=== PATIENT | female | born 1965 | race Caucasian/White ===

== ENCOUNTER 2016-12-12 12:11 | Inpatient (IN) | payer BC, OTHER ==
--- NOTE | ~2016-12-12 | DS ---
Discharge Summary [facility] [address] [place]. [address] NAME: PASHA LOZA : 61 STATUS : DIS IN PAT#: [id number] AGE: 51 ADM/REG DATE : 12/12/16 MR#: [id number] REPORT SERV DATE: 12/27/16 DICTATED BY: KACIE STONER DATE: 12/26/16 REPORT STATUS : Draft TRANSCRIBED BY: SANIA DATE: 12/26/16 ADMISSION DATE: 12/12/2016 DISCHARGE DATE: 12/26/2016 ADDENDUM: This dictation is an addition to interim discharge summary dictated by Dr. Henry Gomez on 12/19/2016. I assumed care of the patient on 12/25/2016. At the time of my assumption of care, the patient was relatively stable with resolution of her acute on chronic respiratory failure. Her urine culture came back positive for Pseudomonas aeruginosa. The patient was started on fosfomycin for therapy. The patient is status post first dose. Her vitals remained hemodynamically stable. Given resolution of her presenting symptoms, the patient will be discharged home with Home Health. Plan has been discussed with the patient and her , and they voiced understanding and are agreeable with this plan. DISCHARGE DIAGNOSES: 1. Acute on chronic respiratory failure. 2. Urinary tract infection, secondary to Pseudomonas aeruginosa. 3. Anemia, normocytic. DISCHARGE MEDICATIONS: Baclofen 20 mg p.o. t.i.d., BuSpar 10 mg p.o. twice a day, Citracal one tab p.o. daily, Fluticasone nasal spray one spray at bedtime, gabapentin 300 mg p.o. twice a day, Keppra 500 mg p.o. twice a day, Myrbetriq 50 mg p.o. at bedtime, Enablex 15 mg p.o. at bedtime, sucralfate 1 g p.o. twice a day, Topamax 100 mg p.o. twice a day, trazodone 25 mg p.o. at bedtime. Her other p.r.n. medic medications were continued. DISPOSITION: The patient will be discharged to home with her . ACTIVITY: As tolerated. DIET: Diabetic diet. Greater than 30 minutes was spent on chart review, counseling, medication reconciliation, dictation note. SIMRAN Kacie Stoner MD / [id number] CC: Kacie Stoner MD Discharge Summary [address] [address] NAME: DAGOPASHA BRODERICK : 61 STATUS : DIS IN PAT#: [id number] AGE: 51 ADM/REG DATE : 12/12/16 MR#: [id number] REPORT SERV DATE: 12/27/16 DICTATED BY: KACIE STONER DATE: 12/26/16 REPORT STATUS : Draft TRANSCRIBED BY: SANIA DATE: 12/26/16 Yonatan Davenport DO
--- NOTE | ~2016-12-12 | HP ---
History And Physical [facility] [id number] [place]. [address] NAME: PASHA KWAN : 61 STATUS : REG ER PAT#: [id number] AGE: 51 ADM/REG DATE : 12/12/16 MR#: [id number] REPORT SERV DATE: 12/12/16 DICTATED BY: MAINOR FOSS DATE: 12/12/16 REPORT STATUS : Draft TRANSCRIBED BY: MODKristin DATE: 12/12/16 DATE OF ADMISSION: 12/12/2016 REASON FOR ADMISSION: Altered mental status. HISTORY OF PRESENT ILLNESS: Ms. Kwan is a 51-year-old lady who is familiar to me from her admission to the hospital in August. 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 coli. Her is her primary caregiver. She lives at home. She presented to the emergency room this afternoon with similar complaints of altered mental status and urinary infection as with prior admission. Of note, she does get lethargic with previous urinary tract infection and the believes this is the same situation as previously. She does have significant chronic CO2 retention with a baseline bicarb around upper 30s. We were contacted by the nurse practitioner in the emergency department for consideration of hospitalization due to hypercapnic respiratory failure, altered mental status, and urinary infection. PAST MEDICAL HISTORY: 1. Quadriplegia secondary to C5-C6 spinal injury with spastic quadriparesis. 2. Chronic pain syndrome. 3. GERD. 4. Frequent urinary tract infections with multiple resistant organisms including ESBL E. coli most recently with prior suprapubic catheter placement. PAST SURGICAL HISTORY: Spinal surgery for the above, appendectomy, and bilateral tubal ligation. SOCIAL HISTORY: No tobacco, alcohol, or illicit drug use. Recently she was injured during a fall in [place] in [place] several years ago according to her . FAMILY HISTORY: Her mother had lung cancer and father had hypertension. REVIEW OF SYSTEMS: A comprehensive 13-point review of systems was completed with the patient and her in the emergency department and review of systems was completed in the emergency department and was negative except for those points described above in the history of present illness section of the dictation. MEDICATION LIST: Amitiza 8 mcg up to twice daily as needed. Baclofen 20 mg 4 times daily. BuSpar 30 mg twice a day. Cipro 500 mg daily. Citrucel 2 times a day. Enablex fiber supplement as needed. Gabapentin 3 to 4 times a day. Hydrocodone 5/325 up to three times a day as needed. Keppra 500 mg twice daily. Reglan 10 mg 4 times daily. Myrbetriq 50 mg once a day. Nitrofurantoin 100 mg a day. MiraLAX powder as needed. Phenergan 25 mg as needed. Ranitidine 300 mg twice daily as needed. Topamax 100 mg 2 times a day. Carafate 1 g 2 times a day. Trazodone 150 mg once a day. History And Physical [address] [address] NAME: PASHA KWAN : 61 STATUS : REG ER PAT#: [id number] AGE: 51 ADM/REG DATE : 12/12/16 MR#: [id number] REPORT SERV DATE: 12/12/16 DICTATED BY: MAINOR FOSS DATE: 12/12/16 REPORT STATUS : Draft TRANSCRIBED BY: SANIA DATE: 12/12/16 ALLERGIES: CODEINE, PENICILLIN, AND ADHESIVE TAPE. ADVANCED DIRECTIVES AND LIVING LAZAR: None. Her is her medical decision maker. PHYSICAL EXAMINATION: GENERAL: The patient is a female, who is chronically ill-appearing and seen in the emergency department, on a BiPAP. HEENT: She is sluggishly responsive but does follow commands. Pupils are equal, round, and reactive to light. Extraocular movements are intact although sluggishly reactive on my exam. HEENT: Head is atraumatic and normocephalic. Ears, nose, and mouth are otherwise unremarkable with moist oral mucosa and fair oral dentition. NECK: Supple without JVD. CHEST: Clear S1, S2 with heart rate in the 80s. ABDOMEN: Soft, nontender, nondistended with a suprapubic catheter which is chronically indwelling. Legs with 1+ pitting edema bilaterally. NEUROLOGIC: Exam is at her baseline. Chronic quadriplegia secondary to C5-6 fracture in the past. PSYCHIATRIC: Exam is limited secondary to mental status. LABORATORY DATA: Personal review of diagnostic workup completed in the emergency department today includes urinalysis which is significant for specific gravity of 1.004, large leukocyte esterase, positive nitrite, and 13 white blood cells and some budding yeast. A CBC has a normal white blood cell count with hemoglobin 12.1, hematocrit of 38.7, and platelet count of 186. A lactate level is 1.1. A urine drug screen is negative. Metabolic profile is significant for chronic CO2 retention with a CO2 of 37, potassium is 3.5, and liver function tests are unremarkable. Troponin level is negative. A chest x-ray shows some hazy bilateral opacities on both sides of the chest without focal consolidation. An EKG shows normal sinus rhythm without ST elevation, depression, with a rate of 83. An ABG shows a pH of 7.226, pCO2 of 93.6, PO2 of 78.2, bicarb of 38, and base excess of 7.5. Oxygen saturation is 98.6%. A followup ABG actually shows deterioration of her respiratory acidosis with a rising paCO2 level despite BiPAP therapy. IMPRESSION: 1. Acute hypercapnic respiratory failure superimposed on to chronic respiratory failure. 2. Dehydration. 3. 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 4. Chronic C5-6 injury with spastic paraparesis. 5. Chronic pain syndrome. 6. Altered mental status likely secondary to acute hypercapnic respiratory failure superimposed on to chronic respiratory failure and some component of toxic metabolic encephalopathy as well. Drug screen is negative. 7. Mild hypokalemia. 8. Chronic indwelling suprapubic catheter. 9. Gastroesophageal reflux disease. 10.Obstructive sleep apnea, on nocturnal oxygen and noncompliant with home CPAP therapy. 11.History of seizure disorder on Keppra. History And Physical [address] [address] NAME: PASHA KWAN : 61 STATUS : REG ER PAT#: [id number] AGE: 51 ADM/REG DATE : 12/12/16 MR#: [id number] REPORT SERV DATE: 12/12/16 DICTATED BY: MAINOR FOSS DATE: 12/12/16 REPORT STATUS : Draft TRANSCRIBED BY: MODL DATE: 12/12/16 12.General debility. PLAN: At this point, we are trying to clarify whether or not the patient is to be intubated or not. She has worsening respiratory acidosis despite aggressive BiPAP settings and her is not available in the emergency department and we are trying to contact him by telephone. She has been intubated in the past for the same, most recently in August at which point, I saw her in the CCU. We will cover her with broad-spectrum antibiotics including meropenem in light of her history of VRE and ESBL E. coli and positive leukocytes or nitrite with white blood cells on urinalysis today and send her urine for culture. We will follow up another ABG after further evaluation. We will continue her home Keppra and review remainder of home medication list for appropriateness of resumption while in the hospital. We will cover with a proton pump inhibitor for stress ulcer prophylaxis in light of her history of GERD and with Lovenox for DVT prophylaxis. We are continuing to attempt to clarify code status and she will have a PICC line placed for better central venous access during her critical illness. We will keep her updated by telephone once he is available. At this point, she is a full code. We will make further adjustments to her regimen as clinically warranted. Approximately 47 minutes of critical care time was spent at the bedside excluding procedures, assessing and stabilizing Ms. Kwan in the emergency department. LAKESHIA/SANIA Mainor Foss MD / [id number] CC: Yonatan Davenport DO
--- NOTE | ~2016-12-12 | IDS ---
Interim Discharge Summary [facility] [address] [place]. [address] NAME: PASHA LOZA : 61 STATUS : ADM IN PAT#: [id number] AGE: 51 ADM/REG DATE : 12/12/16 MR#: [id number] REPORT SERV DATE: 12/19/16 DICTATED BY: Ezequiel DILLON DATE: 12/19/16 REPORT STATUS : Draft TRANSCRIBED BY: MODL DATE: 12/19/16 ADMISSION DATE: 12/12/2016 DISCHARGE DATE: INTERIM SUMMARY DATE: 12/19/2016. For details of earlier hospital stay, please see Critical Care interim summary dated 12/14/2016. DIAGNOSES AT THE TIME OF THIS INTERIM SUMMARY: Respiratory failure with hypoxia and hypercapnia that is acute on chronic in nature, now at baseline, encephalopathy, resolved; C5 spinal injury with spastic quadriplegia; intrathecal baclofen pump; sepsis, resolved; urinary tract infection, resolved; hypokalemia, resolved. ACTIVE CONSULTATIONS: None. PROCEDURES: None. BRIEF SUMMARY: The patient has made marked improvement in her overall clinical picture after her underlying UTI was treated, and significant adjustments have been made in her medications, including discontinuation of multiple therapies, including oral baclofen which she should not need given that she has an intrathecal baclofen pump. At the time of this dictation, she has a negative CT scan of the brain, normalizing lab work, and negative swab for flu A and B. she is waiting to be transitioned to a telemetry bed for ongoing medical management. Dr. Wallis her physiatrists has we filled her baclofen pump and this will not need to be changed again and full late February. There is some consideration for adding additional therapy for underlying narcolepsy which may help with her chronic respiratory failure and recurrent hyper-sedation, and avoid potential repeat episodes that led to her admission this time with over-sedation and hypercapnic respiratory failure. Significant labs at the time of this interim summary, showed a sodium of 138, potassium of 3.8, BUN of 5, creatinine of 0.21, white count is 6.9, hemoglobin 9.4, platelets a 137. The goal will be for her to return home with her family that has handicap-adjusted apartment to allow for them to provide care for her in that setting. Hopefully, she will be medically stable to make this transition within the next few days. Followup laboratory has been ordered for 12/20/2016, and the patient's care will be provided by another member of the hospitalist team starting 12/20/2016. RUBIN/SANIA Ezequiel Dillon M.D. / [id number] Interim Discharge Summary [address] [address] NAME: PASHA LOZA : 61 STATUS : ADM IN PAT#: [id number] AGE: 51 ADM/REG DATE : 12/12/16 MR#: [id number] REPORT SERV DATE: 12/19/16 DICTATED BY: Ezequiel DILLON DATE: 12/19/16 REPORT STATUS : Draft TRANSCRIBED BY: MODKristin DATE: 12/19/16 CC: Antonieta Bedoya DO
--- NOTE | ~2016-12-12 | IDS ---
Interim Discharge Summary [facility] [address] [place]. [address] NAME: PASHA KWAN : 61 STATUS : ADM IN [facility]#: [id number] AGE: 51 ADM/REG DATE : 12/12/16 MR#: [id number] REPORT SERV DATE: 12/14/16 DICTATED BY: MEGHAN NICOLAS DATE: 12/14/16 REPORT STATUS : Draft TRANSCRIBED BY: MODKristin DATE: 12/14/16 ADMISSION DATE: 12/12/2016 DISCHARGE DATE: Interim Discharge Summary And Progress Note The patient is being transferred from the Critical Care Service to the Hospitalist Service. HISTORY OF PRESENT ILLNESS: Ms. wKan is an unfortunate 51-year-old woman with multiple medical problems, most of which now stem from prior C5-C6 spinal injury with chronic spastic paresis with an indwelling suprapubic catheter and recurrent urinary tract infections. She came in to the emergency department because of change in mental status and evidence of a new UTI. She had significant CO2 retention, which was acute on chronic. Was placed on BiPAP and transferred to the ICU. She stated in the emergency department and then reiterated in the ICU very clearly that she did not want to be intubated, wanted to be a limited code which was documented on the chart and was awake throughout the entire process even with her elevated pCO2. SUMMARY OF CLINICAL COURSE THUS FAR: The patient did very well with BiPAP, with significant improvement in mental status, significant improvement in oxygenation, and CO2 retention. She has not required any pressors and has been hemodynamically stable for most of her stay in the ICU. PAST MEDICAL HISTORY: Significant for quadriparesis because of C5-C6 spinal injury, chronic pain syndrome, acid reflux, indwelling Soares catheter with recurrent urinary tract infections. SOCIAL HISTORY: Negative for tobacco abuse, alcohol abuse, or illicit drug use. Her cervical injury apparently was due to a fall in [place] several years ago. REVIEW OF SYSTEMS: Review of 10 systems this morning was performed and is positive for what was noted above. PHYSICAL EXAMINATION: GENERAL: On exam, this morning, she is chronically ill-appearing, but in no acute distress. VITAL SIGNS: Her heart rate is 86, blood pressure 130/66 with an oximetry of 98% and normal respiratory rate. On no pressors. No sedation. HEENT: Normocephalic and atraumatic. NECK: Supple. No lymphadenopathy. No JVD. CHEST: Symmetric with good expansion bilaterally. She has coarse breath sounds. CARDIOVASCULAR: She has S1 and S2, which are regular in rate and rhythm. ABDOMEN: Benign. She has no edema. No clubbing. No cyanosis. ASSESSMENT/PLAN: 1. Respiratory failure. She has acute on chronic hypercapnic respiratory failure, though Interim Discharge Summary [address] [place]. [address] NAME: PASHA KWAN : 61 STATUS : ADM IN PAT#: [id number] AGE: 51 ADM/REG DATE : 12/12/16 MR#: [id number] REPORT SERV DATE: 12/14/16 DICTATED BY: MEGHAN NICOLAS DATE: 12/14/16 REPORT STATUS : Draft TRANSCRIBED BY: SANIA DATE: 12/14/16 the acute component is much improved. 2. We will switch our BiPAP to one at night and p.r.n. during the day. 3. She had sepsis syndrome associated with urinary tract infection. Her procalcitonin this morning is not elevated, though she has a history of multidrug resistant gram- negative urinary tract infections, so we will continue the broad-spectrum antibiotics until the organisms are identified. She has a culture in progress, which is already growing some gram-negative rods. That should be followed up by the team on the floor. 4. She is a do not intubate, limited code by her wishes and that is addressed on the chart. CHADWICK/SANIA Meghan Nicolas M.D. / [id number] CC: MD Yonatan Cortes DO
[~2016-12-12 12:11] MED LIST: *HOMEMEDS; ACET500CAP PO; ADOXA100 MG PO; ALAVERT10 MG PO; AMBIEN CR12.5 MG PO; AMITIZA8 MCG PO; ASABAYER PO; ATV1 PO; BACLOFEN; BACLOFEN PUMP; BACLOFEN20 MG PO; BEN25 PO; BENADRYL 50 MG50 MG PO; BISR PR; BUSPAR15 M1 PO; BUSPAR30 MG PO; CELEXA40 MG PO; CIP5 PO; CITRACAL PO; CITRUCEL500 MG PO; CLOTRIM/BETA EX; COLACEUDL PO; CYMBALTA30 PO; CYMBALTA60 PO; D.O.S.100 MG PO; DEXLANT PO; DIL2TAB PO; DOK100 MG PO; DSS PO; ENABLEX15 PO; ENDOCET1 TA3 PO; FIBERCON PO; FIORICET PO; FLEX PO; FLONASE NAS; FORTEO SC; HYDROCORT0.5 % EX; IMITREX50 PO; IMOD PO; KAPIDEX60 MG PO; KEPPRA500 PO; KLONO2 PO; LIDODERM PATCH TD; LIDODERM TOP; LIOR10 PO; MACROBID PO; MACRODANTIN 10100 MG PO; MELA3 PO; MEPERITAB50 MG PO; MIRALAXPKT PO; MONUROL PO; MULTIVIT/MIN PO; MULTIVITAMI1 PO; MYRBETRIQ50 MG PO; NEUR100 PO; NEUR300 PO; NEUR600 PO; NEUR800 PO; NEXIUM40 PO; NOR10 PO; NORCO1 TA1 PO; OXYCON20 PO; OXYCONTIN15 MG PO; PR25 PO; PROAIR HFA INH; PROAIR HFA PO; PROTONIX PO; PROTONIX20 MG PO; PROVIGIL2 PO; RANITIDINE300 MG PO; REG PO; REST15 PO; ROXICODONE15 MG PO; SEROQUEL25 PO; SLO-FE PO; SUBUTEX8 MG PO; SUBUTEX8 MG SL; SUCR PO; TOPAMAX100 PO; TOPAMAX200 MG PO; TRAZ50 PO; TRAZODONE150 MG PO; TRAZODONE300 MG PO; ULTRAM50 PO; V2 PO; ZANAFLEX 4 MG TA4 MG PO; ZANAFLEX2 MG PO; ZANTAC 150 PO; ZANTAC150 MG PO; ZANTAC300 MG PO; ZOFRAN4 PO; [UNRECOGNIZED DRUG - OTHER] PO
[2016-12-12 13:21] LABS: BASOPHILS 0.4 %; BASOPHILS ABSOLUTE 0.02 10/3/uL (0.0-0.16); EOSINOPHILS 1.9 %; EOSINOPHILS ABSOLUTE 0.09 10/3/uL (0.0-0.53); ER CBC TAT 0 Hrs 05 MinsNP; HEMATOCRIT 38.7 % (36.0-48.0); HEMOGLOBIN 12.1 g/dL (12.0-16.0); IMMATURE GRANULOCYTES 0.4 %; IMMATURE GRANULOCYTES ABSOLUTE 0.02 10/3/uL (0.0-0.11); LYMPHOCYTES 27.3 %; LYMPHOCYTES ABSOLUTE 1.32 10/3/uL (0.67-4.30); MANUAL DIFF NO %; MEAN CORPUS HGB CONC 31.3 g/dL (32.0-36.0); MEAN CORPUSCULAR HEMOGLOB 30.4 pg (26.0-34.0); MEAN CORPUSCULAR VOLUME 97.2 fL (80-100); MEAN PLATELET VOLUME 9.8 fL (9.2-13.0); MONOCYTES 6.6 %; MONOCYTES ABSOLUTE 0.32 10/3/uL (0.21-1.20); NEUTROPHILS 63.4 %; NEUTROPHILS ABSOLUTE 3.06 10/3/uL (2.02-8.40); PLATELET COUNT 186 10/3/uL (150-400); RBC DISTRIBUTION WIDTH 14.4 % (12.0-16.0); RED CELL COUNT 3.98 10/6/uL (4.0-5.6); WHITE BLOOD CELLS 4.8 10/3/uL (4.5-10.5)
[2016-12-12 13:39] LABS: A/G RATIO 1.1 (0.7-1.9); ALBUMIN 3.9 G/DL (3.5-5.0); ALKALINE PHOSPHATASE 100 U/L (45-117); BUN (BLOOD UREA NITROGEN) 15 MG/DL (6-23); CALCIUM, SERUM 11.1 MG/DL (8.5-10.4); CHLORIDE, SERUM 99 MMOL/L (96-112); CO2 (CARBON DIOXIDE) 37 MMOL/L (24-34); CREATININE 0.82 MG/DL (0.55-1.02); GFR AFRICAN AMERICAN 95 ML/MIN (>=60); GFR NON AFRICAN AMERICAN 82 ML/MIN (>=60); GLOBULIN 3.6 G/DL (2.5-4.1); GLUCOSE, SERUM 88 MG/DL (60-99); POTASSIUM, SERUM 3.5 MMOL/L (3.5-5.3); SGOT(AST) 25 U/L (5-40); SGPT(ALT) 31 U/L (5-65); SODIUM, SERUM 144 MMOL/L (135-148); TOTAL BILIRUBIN 0.2 MG/DL (0-1.2); TOTAL PROTEIN 7.5 G/DL (6.0-8.5)
[2016-12-12 13:58] LABS: AMPHETAMINES (NOT ORD) NEG (NEG); BARBITURATES (NOT ORDERED NEG (NEG); BENZODIAZEPINES (NOT ORD) NEG (NEG); CANNABINOIDS (THC) NEG (NEG); COCAINE (NOT ORDERED) NEG (NEG); OPIATES NEG (NEG); PHENCYCLIDINE(PCP) NEG (NEG); TRICYCLICS NEG (NEG)
[2016-12-12 14:11] LABS: ASCORBIC ACID (UR NOT ORDER) NEG (NEG); BILIRUBIN, URINE NEGATIVE (NEG); KETONE, URINE NEGATIVE (NEG); LEUKOCYTE ESTERASE(NOT OR SMALL (NEG); NITRITE (URINE) POS (NEG); WBC (NOT ORDERED) (RFLEX) 20 (0-5)
[2016-12-12 14:13] LABS: ER URINALYSIS TAT 0 Hrs 43 Mins
[2016-12-12 15:32] LABS: TROPONIN I <0.02 NG/ML (<0.05)
[2016-12-12] MEDS ORDERED: *UNABLE2 (16:05)
[2016-12-12] MEDS ORDERED: AMITIZA (16:06)
[2016-12-12] MEDS ORDERED: BACLOFEN (16:07)
[2016-12-12] MEDS ORDERED: BUSPIRONE (16:07)
[2016-12-12] MEDS ORDERED: CITRACAL (16:08)
[2016-12-12] MEDS ORDERED: CIPRO (16:08)
[2016-12-12] MEDS ORDERED: FIBER SUPPLEMENT (16:09)
[2016-12-12] MEDS ORDERED: ENABLEX (16:09)
[2016-12-12] MEDS ORDERED: NORCO (16:10)
[2016-12-12] MEDS ORDERED: GABAPENTIN (16:10)
[2016-12-12] MEDS ORDERED: KEPPRA (16:12)
[2016-12-12] MEDS ORDERED: MACROBID (16:13)
[2016-12-12] MEDS ORDERED: REGLAN (16:13)
[2016-12-12] MEDS ORDERED: PROMETHAZINE (16:16)
[2016-12-12] MEDS ORDERED: MIRALAX (16:16)
[2016-12-12] MEDS ORDERED: CARAFATE (16:17)
[2016-12-12] MEDS ORDERED: TOPAMAX (16:17)
[2016-12-12] MEDS ORDERED: TRAZODONE (16:17)
[2016-12-12] MEDS ORDERED: ZANTAC (16:19)
[2016-12-12] MEDS ORDERED: MYRBETRIQ (16:19)
[2016-12-12 16:23] LABS: ALLENS TEST Pos; BE (BASE EXCESS) 4.5 MEQ/L (0 +/- 2.5); CARBOXYHEMOGLOBIN 2.5 % (0-3); HCO3 (ACTUAL BICARBONATE) 35.3 MEQ/L (23-27); HEMOBLOGIN CONTENT 10.4 G/DL (12-16); INSTRUMENT SERIAL # 8087; METHEMOGLOBIN 0.2 % (0-3); O2 CONTENT 14.4 VOL% (18-24); OPERATOR ID 14335; PCO2 (CO2 TENSION) 99 MMHG (35-45); PO2 (O2 TENSION) 180 MMHG (79-93); SAMPLE Arterial; pH 7.17 (7.37-7.43)
[2016-12-12 17:28] LABS: PROCALCITONIN 0.05 ng/mL (<0.5)
[2016-12-12 17:30] LABS: ALLENS TEST Pos; BE (BASE EXCESS) 4.7 MEQ/L (0 +/- 2.5); BIPAP 20/6 cm.H2O; CARBOXYHEMOGLOBIN 3.1 % (0-3); HCO3 (ACTUAL BICARBONATE) 33.2 MEQ/L (23-27); HEMOBLOGIN CONTENT 11.1 G/DL (12-16); INSTRUMENT SERIAL # 8087; METHEMOGLOBIN 0.1 % (0-3); O2 CONTENT 14.9 VOL% (18-24); OPERATOR ID 14335; PCO2 (CO2 TENSION) 73 MMHG (35-45); PO2 (O2 TENSION) 105 MMHG (79-93); SAMPLE Arterial; pH 7.28 (7.37-7.43)
[2016-12-12] MEDS ORDERED: CITRACAL PO (17:46)
[2016-12-12] MEDS ORDERED: BACLOFEN20 MG PO (17:46)
[2016-12-12] MEDS ORDERED: AMITIZA8 MCG PO (17:46)
[2016-12-12] MEDS ORDERED: BUSPAR30 MG PO (17:46)
[2016-12-12] MEDS ORDERED: REG PO (17:47)
[2016-12-12] MEDS ORDERED: KEPPRA500 PO (17:47)
[2016-12-12] MEDS ORDERED: ENABLEX15 PO (17:47)
[2016-12-12] MEDS ORDERED: NEUR300 PO (17:47)
[2016-12-12] MEDS ORDERED: NORCO1 TA1 PO (17:47)
[2016-12-12] MEDS ORDERED: ZANTAC300 MG PO (17:48)
[2016-12-12] MEDS ORDERED: TOPAMAX100 PO (17:48)
[2016-12-12] MEDS ORDERED: SUCR PO (17:48)
[2016-12-12] MEDS ORDERED: TRAZ50 PO (17:48)
[2016-12-12] MEDS ORDERED: BACDS PO (17:49)
[2016-12-12] MEDS ORDERED: MACROBID PO (17:50)
[2016-12-12] MEDS ORDERED: PROAIR HFA INH (17:50)
[2016-12-12] MEDS ORDERED: PR25 PO (17:50)
[2016-12-12] MEDS ORDERED: ASABAYER PO (17:51)
[2016-12-12] MEDS ORDERED: ACET500CAP PO (17:51)
[2016-12-12] MEDS ORDERED: FLONASE NAS (17:51)
[2016-12-12] MEDS ORDERED: MYRBETRIQ50 MG PO (17:54)
[2016-12-12 20:05] LABS: BE (BASE EXCESS) 7.5 MEQ/L (0 +/- 2.5); INSTRUMENT SERIAL # 8087; PCO2 (CO2 TENSION) 94 MMHG (35-45); PO2 (O2 TENSION) 78 MMHG (79-93); pH 7.23 (7.37-7.43)
[2016-12-12 20:06] LABS: ALLENS TEST Pos; CARBOXYHEMOGLOBIN 3.1 % (0-3); HEMOBLOGIN CONTENT 11.6 G/DL (12-16); METHEMOGLOBIN 0.2 % (0-3); O2 CONTENT 14.6 VOL% (18-24); OPERATOR ID 14335; SAMPLE Arterial
[2016-12-13 03:59] LABS: ALLENS TEST Pos; BE (BASE EXCESS) 4.7 MEQ/L (0 +/- 2.5); BIPAP 20/6 cm.H2O; CARBOXYHEMOGLOBIN 2.5 % (0-3); HCO3 (ACTUAL BICARBONATE) 31.4 MEQ/L (23-27); HEMOBLOGIN CONTENT 10.4 G/DL (12-16); INSTRUMENT SERIAL # 35151; METHEMOGLOBIN 0.2 % (0-3); O2 CONTENT 14.6 VOL% (18-24); PCO2 (CO2 TENSION) 59 MMHG (35-45); PO2 (O2 TENSION) 185 MMHG (79-93); SAMPLE Arterial; pH 7.35 (7.37-7.43)
[2016-12-13 04:02] LABS: BASOPHILS 0.3 %; BASOPHILS ABSOLUTE 0.02 10/3/uL (0.0-0.16); EOSINOPHILS 1.2 %; EOSINOPHILS ABSOLUTE 0.07 10/3/uL (0.0-0.53); HEMOGLOBIN 10.8 g/dL (12.0-16.0); IMMATURE GRANULOCYTES 0.3 %; IMMATURE GRANULOCYTES ABSOLUTE 0.02 10/3/uL (0.0-0.11); LYMPHOCYTES 20.8 %; LYMPHOCYTES ABSOLUTE 1.21 10/3/uL (0.67-4.30); MEAN CORPUS HGB CONC 31.1 g/dL (32.0-36.0); MEAN CORPUSCULAR HEMOGLOB 30.3 pg (26.0-34.0); MEAN CORPUSCULAR VOLUME 97.5 fL (80-100); MEAN PLATELET VOLUME 9.8 fL (9.2-13.0); MONOCYTES 6.7 %; MONOCYTES ABSOLUTE 0.39 10/3/uL (0.21-1.20); NEUTROPHILS 70.7 %; NEUTROPHILS ABSOLUTE 4.12 10/3/uL (2.02-8.40); PLATELET COUNT 147 10/3/uL (150-400); RBC DISTRIBUTION WIDTH 14.4 % (12.0-16.0); RED CELL COUNT 3.56 10/6/uL (4.0-5.6); WHITE BLOOD CELLS 5.8 10/3/uL (4.5-10.5)
[2016-12-13 04:03] LABS: HEMATOCRIT 34.7 % (36.0-48.0); MANUAL DIFF NO %
[2016-12-13 04:06] LABS: INTERNATIONAL NORMAL RATI 0.9 UNITS (-); PARTIAL THROMBO TIME 42.7 SEC (22.5-37.2); PROTIME (NOT ORD) 12.3 SEC (12.0-14.5)
[2016-12-13 04:43] LABS: A/G RATIO 1.1 (0.7-1.9); ALBUMIN 3.5 G/DL (3.5-5.0); ALKALINE PHOSPHATASE 97 U/L (45-117); BUN (BLOOD UREA NITROGEN) 14 MG/DL (6-23); CALCIUM, SERUM 10.3 MG/DL (8.5-10.4); CHLORIDE, SERUM 106 MMOL/L (96-112); CK-MB 8.4 NG/ML; CREATININE 0.72 MG/DL (0.55-1.02); FREE T4 0.96 NG/DL (0.76-1.46); GFR AFRICAN AMERICAN 111 ML/MIN (>=60); GFR NON AFRICAN AMERICAN 96 ML/MIN (>=60); GLOBULIN 3.1 G/DL (2.5-4.1); GLUCOSE, SERUM 79 MG/DL (60-99); PHOSPHORUS, SERUM 4.5 MG/DL (2.5-4.5); POTASSIUM, SERUM 3.9 MMOL/L (3.5-5.3); SGOT(AST) 23 U/L (5-40); SGPT(ALT) 32 U/L (5-65); SODIUM, SERUM 144 MMOL/L (135-148); TOTAL BILIRUBIN 0.1 MG/DL (0-1.2); TOTAL PROTEIN 6.6 G/DL (6.0-8.5); TROPONIN I <0.02 NG/ML (<0.05)
[2016-12-13 04:44] LABS: CKMB INDEX (NOT ORD) 3.5; CO2 (CARBON DIOXIDE) 32 MMOL/L (24-34); CPK 238 U/L (0-200)
[2016-12-13 04:47] LABS: SED RATE 18 MM/HR (0-20)
[2016-12-14 03:42] LABS: BASOPHILS 0.3 %; BASOPHILS ABSOLUTE 0.01 10/3/uL (0.0-0.16); EOSINOPHILS 0.5 %; EOSINOPHILS ABSOLUTE 0.02 10/3/uL (0.0-0.53); HEMATOCRIT 31.6 % (36.0-48.0); HEMOGLOBIN 10.1 g/dL (12.0-16.0); IMMATURE GRANULOCYTES ABSOLUTE 0.04 10/3/uL (0.0-0.11); LYMPHOCYTES 18.2 %; LYMPHOCYTES ABSOLUTE 0.71 10/3/uL (0.67-4.30); MEAN CORPUSCULAR HEMOGLOB 30.6 pg (26.0-34.0); MEAN CORPUSCULAR VOLUME 95.8 fL (80-100); MEAN PLATELET VOLUME 9.9 fL (9.2-13.0); MONOCYTES 6.2 %; MONOCYTES ABSOLUTE 0.24 10/3/uL (0.21-1.20); NEUTROPHILS 73.8 %; NEUTROPHILS ABSOLUTE 2.88 10/3/uL (2.02-8.40); PLATELET COUNT 110 10/3/uL (150-400); RBC DISTRIBUTION WIDTH 13.9 % (12.0-16.0); WHITE BLOOD CELLS 3.9 10/3/uL (4.5-10.5)
[2016-12-14 03:43] LABS: MANUAL DIFF NO %
[2016-12-14 03:54] LABS: CO2 (CARBON DIOXIDE) 28 MMOL/L (24-34); CREATININE 0.36 MG/DL (0.55-1.02); GFR AFRICAN AMERICAN 143 ML/MIN (>=60); GFR NON AFRICAN AMERICAN 123 ML/MIN (>=60); GLUCOSE, SERUM 66 MG/DL (60-99)
[2016-12-14 03:57] LABS: BUN (BLOOD UREA NITROGEN) 9 MG/DL (6-23); CALCIUM, SERUM 8.3 MG/DL (8.5-10.4); CHLORIDE, SERUM 95 MMOL/L (96-112); SODIUM, SERUM 134 MMOL/L (135-148)
[2016-12-14 04:16] LABS: PROCALCITONIN <0.05 ng/mL (<0.5)
[2016-12-15 05:25] LABS: BASOPHILS 0.2 %; BASOPHILS ABSOLUTE 0.01 10/3/uL (0.0-0.16); EOSINOPHILS 0 %; HEMATOCRIT 30.9 % (36.0-48.0); HEMOGLOBIN 10.1 g/dL (12.0-16.0); IMMATURE GRANULOCYTES 1.4 %; IMMATURE GRANULOCYTES ABSOLUTE 0.08 10/3/uL (0.0-0.11); LYMPHOCYTES 9.6 %; LYMPHOCYTES ABSOLUTE 0.56 10/3/uL (0.67-4.30); MEAN CORPUS HGB CONC 32.7 g/dL (32.0-36.0); MEAN CORPUSCULAR HEMOGLOB 30.7 pg (26.0-34.0); MEAN CORPUSCULAR VOLUME 93.9 fL (80-100); MONOCYTES 3.8 %; MONOCYTES ABSOLUTE 0.22 10/3/uL (0.21-1.20); NEUTROPHILS ABSOLUTE 4.97 10/3/uL (2.02-8.40); PLATELET COUNT 128 10/3/uL (150-400); RED CELL COUNT 3.29 10/6/uL (4.0-5.6)
[2016-12-15 05:36] LABS: MANUAL DIFF NO %; WHITE BLOOD CELLS 5.8 10/3/uL (4.5-10.5)
[2016-12-15 05:36] LABS: BUN (BLOOD UREA NITROGEN) 8 MG/DL (6-23); CALCIUM, SERUM 8.3 MG/DL (8.5-10.4); CHLORIDE, SERUM 88 MMOL/L (96-112); GFR AFRICAN AMERICAN 152 ML/MIN (>=60); GFR NON AFRICAN AMERICAN 131 ML/MIN (>=60); GLUCOSE, SERUM 67 MG/DL (60-99); POTASSIUM, SERUM 3.8 MMOL/L (3.5-5.3); SODIUM, SERUM 129 MMOL/L (135-148)
[2016-12-15 05:37] LABS: CO2 (CARBON DIOXIDE) 34 MMOL/L (24-34)
[2016-12-15 11:45] LABS: ALLENS TEST Pos; BE (BASE EXCESS) 3.9 MEQ/L (0 +/- 2.5); CARBOXYHEMOGLOBIN 2.2 % (0-3); DEVICE NC; HCO3 (ACTUAL BICARBONATE) 33.8 MEQ/L (23-27); HEMOBLOGIN CONTENT 10.4 G/DL (12-16); INSTRUMENT SERIAL # 8083; METHEMOGLOBIN 0.2 % (0-3); O2 CONTENT 14.1 VOL% (18-24); PCO2 (CO2 TENSION) 89 MMHG (35-45); PO2 (O2 TENSION) 105 MMHG (79-93); SAMPLE Arterial
[2016-12-15 12:18] LABS: SODIUM, URINE 100 MEQ/L
[2016-12-15 12:22] LABS: OSMOLALITY, URINE 341 MOSM/KG (50-1200)
[2016-12-16 04:02] LABS: ALLENS TEST Pos; BE (BASE EXCESS) 15.6 MEQ/L (0 +/- 2.5); BIPAP 20/6 cm.H2O; CARBOXYHEMOGLOBIN 1.9 % (0-3); HCO3 (ACTUAL BICARBONATE) 41.6 MEQ/L (23-27); HEMOBLOGIN CONTENT 10.4 G/DL (12-16); INSTRUMENT SERIAL # 8083; METHEMOGLOBIN 0.2 % (0-3); O2 CONTENT 14.5 VOL% (18-24); OPERATOR ID 17370; PCO2 (CO2 TENSION) 59 MMHG (35-45); PO2 (O2 TENSION) 164 MMHG (79-93); SAMPLE Arterial; pH 7.47 (7.37-7.43)
[2016-12-16 05:09] LABS: BASOPHILS 0.1 %; BASOPHILS ABSOLUTE 0.01 10/3/uL (0.0-0.16); EOSINOPHILS 0 %; HEMATOCRIT 30.8 % (36.0-48.0); HEMOGLOBIN 10.3 g/dL (12.0-16.0); IMMATURE GRANULOCYTES 0.9 %; IMMATURE GRANULOCYTES ABSOLUTE 0.07 10/3/uL (0.0-0.11); LYMPHOCYTES 12.4 %; LYMPHOCYTES ABSOLUTE 0.96 10/3/uL (0.67-4.30); MEAN CORPUS HGB CONC 33.4 g/dL (32.0-36.0); MEAN CORPUSCULAR HEMOGLOB 30.6 pg (26.0-34.0); MEAN CORPUSCULAR VOLUME 91.4 fL (80-100); MEAN PLATELET VOLUME 9.8 fL (9.2-13.0); MONOCYTES 4.8 %; MONOCYTES ABSOLUTE 0.37 10/3/uL (0.21-1.20); NEUTROPHILS 81.8 %; NEUTROPHILS ABSOLUTE 6.35 10/3/uL (2.02-8.40); PLATELET COUNT 158 10/3/uL (150-400); RBC DISTRIBUTION WIDTH 13.8 % (12.0-16.0); RED CELL COUNT 3.37 10/6/uL (4.0-5.6); WHITE BLOOD CELLS 7.8 10/3/uL (4.5-10.5)
[2016-12-16 05:12] LABS: MANUAL DIFF NO %
[2016-12-16 05:37] LABS: % IRON SAT 26 % (20-50); BUN (BLOOD UREA NITROGEN) 8 MG/DL (6-23); CALCIUM, SERUM 8.3 MG/DL (8.5-10.4); CO2 (CARBON DIOXIDE) 37 MMOL/L (24-34); CREATININE 0.48 MG/DL (0.55-1.02); FERRITIN 52 NG/ML (8-252); GFR AFRICAN AMERICAN 130 ML/MIN (>=60); GFR NON AFRICAN AMERICAN 112 ML/MIN (>=60); IRON BINDING CAPACITY 305 MCG/DL (225-410); IRON, SERUM 78 MCG/DL (35-150); SODIUM, SERUM 126 MMOL/L (135-148)
[2016-12-16 05:39] LABS: CHLORIDE, SERUM 77 MMOL/L (96-112); GLUCOSE, SERUM 99 MG/DL (60-99); POTASSIUM, SERUM 2.7 MMOL/L (3.5-5.3)
[2016-12-16] MEDS ORDERED: BACLOFEN IT (17:21)
[2016-12-17 04:55] LABS: BUN (BLOOD UREA NITROGEN) 9 MG/DL (6-23); CALCIUM, SERUM 7.9 MG/DL (8.5-10.4); CHLORIDE, SERUM 82 MMOL/L (96-112); CO2 (CARBON DIOXIDE) 39 MMOL/L (24-34); CREATININE 0.44 MG/DL (0.55-1.02); GFR AFRICAN AMERICAN 134 ML/MIN (>=60); GFR NON AFRICAN AMERICAN 115 ML/MIN (>=60); GLUCOSE, SERUM 118 MG/DL (60-99)
[2016-12-17 04:58] LABS: POTASSIUM, SERUM 2.9 MMOL/L (3.5-5.3); SODIUM, SERUM 135 MMOL/L (135-148)
[2016-12-17 05:39] LABS: ALLENS TEST Pos; BIPAP 16/6 cm.H2O; CARBOXYHEMOGLOBIN 1.5 % (0-3); HCO3 (ACTUAL BICARBONATE) 37.8 MEQ/L (23-27); HEMOBLOGIN CONTENT 11.2 G/DL (12-16); INSTRUMENT SERIAL # 8083; METHEMOGLOBIN 0.1 % (0-3); O2 CONTENT 15.6 VOL% (18-24); OPERATOR ID 35190; PCO2 (CO2 TENSION) 50 MMHG (35-45); PO2 (O2 TENSION) 142 MMHG (79-93); SAMPLE Arterial
[2016-12-18 05:15] LABS: BASOPHILS 0 %; EOSINOPHILS 0 %; HEMATOCRIT 29.7 % (36.0-48.0); HEMOGLOBIN 9.1 g/dL (12.0-16.0); IMMATURE GRANULOCYTES 0.3 %; IMMATURE GRANULOCYTES ABSOLUTE 0.02 10/3/uL (0.0-0.11); LYMPHOCYTES 24.9 %; LYMPHOCYTES ABSOLUTE 1.61 10/3/uL (0.67-4.30); MEAN CORPUSCULAR HEMOGLOB 29.1 pg (26.0-34.0); MEAN PLATELET VOLUME 9.5 fL (9.2-13.0); MONOCYTES ABSOLUTE 0.97 10/3/uL (0.21-1.20); NEUTROPHILS 59.8 %; NEUTROPHILS ABSOLUTE 3.87 10/3/uL (2.02-8.40); PLATELET COUNT 122 10/3/uL (150-400); RBC DISTRIBUTION WIDTH 14.2 % (12.0-16.0); RED CELL COUNT 3.13 10/6/uL (4.0-5.6); WHITE BLOOD CELLS 6.5 10/3/uL (4.5-10.5)
[2016-12-18 05:16] LABS: MANUAL DIFF NO %; MEAN CORPUS HGB CONC 30.6 g/dL (32.0-36.0); MEAN CORPUSCULAR VOLUME 94.9 fL (80-100)
[2016-12-18 05:31] LABS: BUN (BLOOD UREA NITROGEN) 9 MG/DL (6-23); CALCIUM, SERUM 7.5 MG/DL (8.5-10.4); CO2 (CARBON DIOXIDE) 36 MMOL/L (24-34); CREATININE 0.27 MG/DL (0.55-1.02); GFR AFRICAN AMERICAN 157 ML/MIN (>=60); GFR NON AFRICAN AMERICAN 135 ML/MIN (>=60); GLUCOSE, SERUM 137 MG/DL (60-99); SODIUM, SERUM 139 MMOL/L (135-148)
[2016-12-18 05:35] LABS: CHLORIDE, SERUM 92 MMOL/L (96-112)
[2016-12-18 06:20] LABS: PHOSPHORUS, SERUM 0.5 MG/DL (2.5-4.5)
[2016-12-18 07:19] LABS: INFLUENZA A SCREEN NEGATIVE (NEGATIVE); INFLUENZA B SCREEN NEGATIVE (NEGATIVE)
[2016-12-18 13:26] LABS: BUN (BLOOD UREA NITROGEN) 8 MG/DL (6-23); CALCIUM, SERUM 7.2 MG/DL (8.5-10.4); CHLORIDE, SERUM 97 MMOL/L (96-112); CO2 (CARBON DIOXIDE) 36 MMOL/L (24-34); CREATININE 0.16 MG/DL (0.55-1.02); GFR AFRICAN AMERICAN 186 ML/MIN (>=60); GFR NON AFRICAN AMERICAN 161 ML/MIN (>=60); GLUCOSE, SERUM 124 MG/DL (60-99); POTASSIUM, SERUM 3.4 MMOL/L (3.5-5.3); SODIUM, SERUM 140 MMOL/L (135-148)
[2016-12-18 20:44] LABS: BUN (BLOOD UREA NITROGEN) 6 MG/DL (6-23); CALCIUM, SERUM 7.4 MG/DL (8.5-10.4); CHLORIDE, SERUM 100 MMOL/L (96-112); CO2 (CARBON DIOXIDE) 33 MMOL/L (24-34); CREATININE 0.24 MG/DL (0.55-1.02); GFR AFRICAN AMERICAN 163 ML/MIN (>=60); GFR NON AFRICAN AMERICAN 141 ML/MIN (>=60); GLUCOSE, SERUM 131 MG/DL (60-99); POTASSIUM, SERUM 3.8 MMOL/L (3.5-5.3); SODIUM, SERUM 141 MMOL/L (135-148)
[2016-12-18 20:53] LABS: POTASSIUM, SERUM 3.8 MMOL/L (3.5-5.3)
[2016-12-18 20:54] LABS: PHOSPHORUS, SERUM 0.5 MG/DL (2.5-4.5)
[2016-12-19 04:51] LABS: BASOPHILS 0.1 %; BASOPHILS ABSOLUTE 0.01 10/3/uL (0.0-0.16); EOSINOPHILS 0.7 %; EOSINOPHILS ABSOLUTE 0.05 10/3/uL (0.0-0.53); HEMATOCRIT 30.9 % (36.0-48.0); HEMOGLOBIN 9.4 g/dL (12.0-16.0); IMMATURE GRANULOCYTES 0.1 %; IMMATURE GRANULOCYTES ABSOLUTE 0.01 10/3/uL (0.0-0.11); LYMPHOCYTES ABSOLUTE 1.73 10/3/uL (0.67-4.30); MEAN CORPUS HGB CONC 30.4 g/dL (32.0-36.0); MEAN CORPUSCULAR HEMOGLOB 28.9 pg (26.0-34.0); MEAN CORPUSCULAR VOLUME 95.1 fL (80-100); MEAN PLATELET VOLUME 9.7 fL (9.2-13.0); MONOCYTES 6.2 %; MONOCYTES ABSOLUTE 0.43 10/3/uL (0.21-1.20); NEUTROPHILS 67.9 %; NEUTROPHILS ABSOLUTE 4.68 10/3/uL (2.02-8.40); PLATELET COUNT 137 10/3/uL (150-400); RBC DISTRIBUTION WIDTH 14.6 % (12.0-16.0); RED CELL COUNT 3.25 10/6/uL (4.0-5.6); WHITE BLOOD CELLS 6.9 10/3/uL (4.5-10.5)
[2016-12-19 04:55] LABS: BUN (BLOOD UREA NITROGEN) 5 MG/DL (6-23); CALCIUM, SERUM 7.2 MG/DL (8.5-10.4); CHLORIDE, SERUM 100 MMOL/L (96-112); CO2 (CARBON DIOXIDE) 31 MMOL/L (24-34); CREATININE 0.21 MG/DL (0.55-1.02); GFR AFRICAN AMERICAN 170 ML/MIN (>=60); GFR NON AFRICAN AMERICAN 147 ML/MIN (>=60); GLUCOSE, SERUM 105 MG/DL (60-99); POTASSIUM, SERUM 3.9 MMOL/L (3.5-5.3); SODIUM, SERUM 138 MMOL/L (135-148)
[2016-12-19 04:56] LABS: MANUAL DIFF NO %
[2016-12-19 04:58] LABS: PHOSPHORUS, SERUM 1.8 MG/DL (2.5-4.5)
[2016-12-19 13:39] LABS: BUN (BLOOD UREA NITROGEN) 6 MG/DL (6-23); CALCIUM, SERUM 7.5 MG/DL (8.5-10.4); CHLORIDE, SERUM 102 MMOL/L (96-112); CO2 (CARBON DIOXIDE) 31 MMOL/L (24-34); CREATININE 0.25 MG/DL (0.55-1.02); GFR AFRICAN AMERICAN 161 ML/MIN (>=60); GFR NON AFRICAN AMERICAN 139 ML/MIN (>=60); GLUCOSE, SERUM 119 MG/DL (60-99); POTASSIUM, SERUM 3.9 MMOL/L (3.5-5.3); SODIUM, SERUM 138 MMOL/L (135-148)
[2016-12-19 22:10] LABS: BUN (BLOOD UREA NITROGEN) 5 MG/DL (6-23); CALCIUM, SERUM 7.7 MG/DL (8.5-10.4); CHLORIDE, SERUM 105 MMOL/L (96-112); CO2 (CARBON DIOXIDE) 30 MMOL/L (24-34); CREATININE 0.44 MG/DL (0.55-1.02); GFR AFRICAN AMERICAN 134 ML/MIN (>=60); GFR NON AFRICAN AMERICAN 115 ML/MIN (>=60); GLUCOSE, SERUM 116 MG/DL (60-99); POTASSIUM, SERUM 3.9 MMOL/L (3.5-5.3); SODIUM, SERUM 142 MMOL/L (135-148)
[2016-12-20 10:03] LABS: BUN (BLOOD UREA NITROGEN) 3 MG/DL (6-23); CALCIUM, SERUM 8.1 MG/DL (8.5-10.4); CHLORIDE, SERUM 108 MMOL/L (96-112); CO2 (CARBON DIOXIDE) 28 MMOL/L (24-34); CREATININE 0.46 MG/DL (0.55-1.02); GFR AFRICAN AMERICAN 132 ML/MIN (>=60); GFR NON AFRICAN AMERICAN 114 ML/MIN (>=60); GLUCOSE, SERUM 138 MG/DL (60-99); POTASSIUM, SERUM 3.8 MMOL/L (3.5-5.3); SODIUM, SERUM 144 MMOL/L (135-148)
[2016-12-20 10:04] LABS: PHOSPHORUS, SERUM 1.1 MG/DL (2.5-4.5)
[2016-12-20 18:02] LABS: CALCIUM, SERUM 8.2 MG/DL (8.5-10.4); CHLORIDE, SERUM 110 MMOL/L (96-112); CO2 (CARBON DIOXIDE) 29 MMOL/L (24-34); CREATININE 0.51 MG/DL (0.55-1.02); GFR AFRICAN AMERICAN 127 ML/MIN (>=60); GFR NON AFRICAN AMERICAN 110 ML/MIN (>=60); GLUCOSE, SERUM 121 MG/DL (60-99); POTASSIUM, SERUM 3.7 MMOL/L (3.5-5.3); SODIUM, SERUM 146 MMOL/L (135-148)
[2016-12-20 18:03] LABS: BUN (BLOOD UREA NITROGEN) 9 MG/DL (6-23); PHOSPHORUS, SERUM 2.8 MG/DL (2.5-4.5)
[2016-12-20 18:09] LABS: INTACT PTH (ICMA) 42.7 PG/ML (10.0-65.0)
[2016-12-21 05:11] LABS: BASOPHILS 0.2 %; BASOPHILS ABSOLUTE 0.01 10/3/uL (0.0-0.16); EOSINOPHILS 1.4 %; EOSINOPHILS ABSOLUTE 0.09 10/3/uL (0.0-0.53); HEMATOCRIT 31.3 % (36.0-48.0); HEMOGLOBIN 9.9 g/dL (12.0-16.0); IMMATURE GRANULOCYTES 0.2 %; IMMATURE GRANULOCYTES ABSOLUTE 0.01 10/3/uL (0.0-0.11); LYMPHOCYTES 33.5 %; LYMPHOCYTES ABSOLUTE 2.16 10/3/uL (0.67-4.30); MANUAL DIFF NO %; MEAN CORPUS HGB CONC 31.6 g/dL (32.0-36.0); MEAN CORPUSCULAR HEMOGLOB 29.9 pg (26.0-34.0); MEAN CORPUSCULAR VOLUME 94.6 fL (80-100); MONOCYTES 7.8 %; NEUTROPHILS 56.9 %; NEUTROPHILS ABSOLUTE 3.68 10/3/uL (2.02-8.40); PLATELET COUNT 192 10/3/uL (150-400); RBC DISTRIBUTION WIDTH 15.5 % (12.0-16.0); RED CELL COUNT 3.31 10/6/uL (4.0-5.6); WHITE BLOOD CELLS 6.5 10/3/uL (4.5-10.5)
[2016-12-21 05:25] LABS: BUN (BLOOD UREA NITROGEN) 11 MG/DL (6-23); CALCIUM, SERUM 8.4 MG/DL (8.5-10.4); CHLORIDE, SERUM 108 MMOL/L (96-112); CO2 (CARBON DIOXIDE) 28 MMOL/L (24-34); CREATININE 0.46 MG/DL (0.55-1.02); GFR AFRICAN AMERICAN 132 ML/MIN (>=60); GFR NON AFRICAN AMERICAN 114 ML/MIN (>=60); PHOSPHORUS, SERUM 3.1 MG/DL (2.5-4.5); POTASSIUM, SERUM 3.8 MMOL/L (3.5-5.3); SODIUM, SERUM 146 MMOL/L (135-148)
[2016-12-21 05:27] LABS: GLUCOSE, SERUM 92 MG/DL (60-99)
[2016-12-21 15:13] LABS: ALLENS TEST Pos; BE (BASE EXCESS) 4.1 MEQ/L (0 +/- 2.5); CARBOXYHEMOGLOBIN 1.1 % (0-3); HCO3 (ACTUAL BICARBONATE) 27.9 MEQ/L (23-27); HEMOBLOGIN CONTENT 10.1 G/DL (12-16); INSTRUMENT SERIAL # 11843; METHEMOGLOBIN 0.3 % (0-3); O2 CONTENT 13.3 VOL% (18-24); OPERATOR ID 32214; PCO2 (CO2 TENSION) 39 MMHG (35-45); PO2 (O2 TENSION) 76 MMHG (79-93); SAMPLE Arterial; pH 7.47 (7.37-7.43)
[2016-12-22 04:51] LABS: CALCIUM, SERUM 9.1 MG/DL (8.5-10.4); CHLORIDE, SERUM 104 MMOL/L (96-112); CO2 (CARBON DIOXIDE) 27 MMOL/L (24-34); GFR AFRICAN AMERICAN 121 ML/MIN (>=60); GFR NON AFRICAN AMERICAN 104 ML/MIN (>=60); GLUCOSE, SERUM 93 MG/DL (60-99); SODIUM, SERUM 140 MMOL/L (135-148)
[2016-12-22 04:52] LABS: BUN (BLOOD UREA NITROGEN) 17 MG/DL (6-23)
[2016-12-22 04:53] LABS: PHOSPHORUS, SERUM 4.2 MG/DL (2.5-4.5)
[2016-12-22 13:49] LABS: PROCALCITONIN 0.11 ng/mL (<0.5)
[2016-12-22 13:53] LABS: ASCORBIC ACID (UR NOT ORDER) NEG (NEG); BILIRUBIN, URINE NEGATIVE (NEG); KETONE, URINE NEGATIVE (NEG); LEUKOCYTE ESTERASE(NOT OR SMALL (NEG); WBC (NOT ORDERED) (RFLEX) 19 (0-5)
[2016-12-23 05:48] LABS: BASOPHILS 0.2 %; BASOPHILS ABSOLUTE 0.02 10/3/uL (0.0-0.16); EOSINOPHILS 1.5 %; EOSINOPHILS ABSOLUTE 0.16 10/3/uL (0.0-0.53); HEMATOCRIT 29.4 % (36.0-48.0); HEMOGLOBIN 9.5 g/dL (12.0-16.0); IMMATURE GRANULOCYTES 0.2 %; IMMATURE GRANULOCYTES ABSOLUTE 0.02 10/3/uL (0.0-0.11); LYMPHOCYTES 29.5 %; LYMPHOCYTES ABSOLUTE 3.07 10/3/uL (0.67-4.30); MANUAL DIFF NO %; MEAN CORPUS HGB CONC 32.3 g/dL (32.0-36.0); MEAN CORPUSCULAR HEMOGLOB 30.5 pg (26.0-34.0); MEAN CORPUSCULAR VOLUME 94.5 fL (80-100); MONOCYTES 6.5 %; MONOCYTES ABSOLUTE 0.68 10/3/uL (0.21-1.20); NEUTROPHILS 62.1 %; NEUTROPHILS ABSOLUTE 6.47 10/3/uL (2.02-8.40); PLATELET COUNT 251 10/3/uL (150-400); RBC DISTRIBUTION WIDTH 15.4 % (12.0-16.0); RED CELL COUNT 3.11 10/6/uL (4.0-5.6); WHITE BLOOD CELLS 10.4 10/3/uL (4.5-10.5)
[2016-12-23 05:59] LABS: BUN (BLOOD UREA NITROGEN) 20 MG/DL (6-23); CALCIUM, SERUM 8.7 MG/DL (8.5-10.4); CHLORIDE, SERUM 105 MMOL/L (96-112); CO2 (CARBON DIOXIDE) 27 MMOL/L (24-34); CREATININE 0.59 MG/DL (0.55-1.02); GFR AFRICAN AMERICAN 121 ML/MIN (>=60); GFR NON AFRICAN AMERICAN 105 ML/MIN (>=60); GLUCOSE, SERUM 89 MG/DL (60-99); POTASSIUM, SERUM 3.4 MMOL/L (3.5-5.3); SODIUM, SERUM 142 MMOL/L (135-148)
[2016-12-24 03:51] LABS: BE (BASE EXCESS) -5.1 MEQ/L (0 +/- 2.5); CARBOXYHEMOGLOBIN 1.5 % (0-3); HCO3 (ACTUAL BICARBONATE) 18.6 MEQ/L (23-27); HEMOBLOGIN CONTENT 10.1 G/DL (12-16); INSTRUMENT SERIAL # 8083; METHEMOGLOBIN 0.3 % (0-3); O2 CONTENT 13.5 VOL% (18-24); PCO2 (CO2 TENSION) 30 MMHG (35-45); PO2 (O2 TENSION) 90 MMHG (79-93); SAMPLE Arterial; pH 7.41 (7.37-7.43)
[2016-12-24 05:26] LABS: BASOPHILS 0.2 %; BASOPHILS ABSOLUTE 0.02 10/3/uL (0.0-0.16); EOSINOPHILS 2.2 %; EOSINOPHILS ABSOLUTE 0.21 10/3/uL (0.0-0.53); HEMATOCRIT 30.8 % (36.0-48.0); HEMOGLOBIN 9.9 g/dL (12.0-16.0); IMMATURE GRANULOCYTES 0.3 %; IMMATURE GRANULOCYTES ABSOLUTE 0.03 10/3/uL (0.0-0.11); LYMPHOCYTES 28.9 %; MANUAL DIFF NO %; MEAN CORPUS HGB CONC 32.1 g/dL (32.0-36.0); MEAN CORPUSCULAR HEMOGLOB 30.6 pg (26.0-34.0); MEAN CORPUSCULAR VOLUME 95.1 fL (80-100); MEAN PLATELET VOLUME 9.7 fL (9.2-13.0); MONOCYTES 9.5 %; MONOCYTES ABSOLUTE 0.89 10/3/uL (0.21-1.20); NEUTROPHILS 58.9 %; PLATELET COUNT 289 10/3/uL (150-400); RBC DISTRIBUTION WIDTH 15.1 % (12.0-16.0); RED CELL COUNT 3.24 10/6/uL (4.0-5.6); WHITE BLOOD CELLS 9.4 10/3/uL (4.5-10.5)
[2016-12-24 05:45] LABS: CALCIUM, SERUM 8.9 MG/DL (8.5-10.4); CHLORIDE, SERUM 106 MMOL/L (96-112); CO2 (CARBON DIOXIDE) 25 MMOL/L (24-34); CREATININE 0.54 MG/DL (0.55-1.02); GFR AFRICAN AMERICAN 125 ML/MIN (>=60); GFR NON AFRICAN AMERICAN 108 ML/MIN (>=60); GLUCOSE, SERUM 83 MG/DL (60-99); POTASSIUM, SERUM 3.4 MMOL/L (3.5-5.3); SODIUM, SERUM 142 MMOL/L (135-148)
[2016-12-24 05:47] LABS: BUN (BLOOD UREA NITROGEN) 15 MG/DL (6-23)
[2016-12-24 10:57] LABS: HEPATITIS B SURFACE ANTIGEN NON-REACTIVE (NON-REACT)
[2016-12-24 11:24] LABS: HEPATITIS C ANTIBODY NON-REACTIVE (NON-REACT)
[2016-12-24 11:25] LABS: HEPATITIS B CORE AB IGM NON-REACTIVE (NON-REAC)
[2016-12-24 11:26] LABS: HEP A ANTIBODY IGM NON-REACTIVE (NON-REACT)
[2016-12-26 06:04] LABS: BASOPHILS 0.3 %; BASOPHILS ABSOLUTE 0.02 10/3/uL (0.0-0.16); EOSINOPHILS ABSOLUTE 0.12 10/3/uL (0.0-0.53); HEMATOCRIT 30.1 % (36.0-48.0); HEMOGLOBIN 9.6 g/dL (12.0-16.0); IMMATURE GRANULOCYTES 0.3 %; IMMATURE GRANULOCYTES ABSOLUTE 0.02 10/3/uL (0.0-0.11); LYMPHOCYTES 32.3 %; LYMPHOCYTES ABSOLUTE 1.95 10/3/uL (0.67-4.30); MEAN CORPUS HGB CONC 31.9 g/dL (32.0-36.0); MEAN CORPUSCULAR HEMOGLOB 30.7 pg (26.0-34.0); MEAN CORPUSCULAR VOLUME 96.2 fL (80-100); MEAN PLATELET VOLUME 9.6 fL (9.2-13.0); MONOCYTES 9.1 %; MONOCYTES ABSOLUTE 0.55 10/3/uL (0.21-1.20); NEUTROPHILS ABSOLUTE 3.37 10/3/uL (2.02-8.40); PLATELET COUNT 350 10/3/uL (150-400); RBC DISTRIBUTION WIDTH 14.8 % (12.0-16.0); RED CELL COUNT 3.13 10/6/uL (4.0-5.6)
[2016-12-26 06:20] LABS: MANUAL DIFF NO %
[2016-12-26 06:21] LABS: A/G RATIO 0.8 (0.7-1.9); ALBUMIN 2.8 G/DL (3.5-5.0); ALKALINE PHOSPHATASE 87 U/L (45-117); BUN (BLOOD UREA NITROGEN) 12 MG/DL (6-23); CALCIUM, SERUM 8.8 MG/DL (8.5-10.4); CHLORIDE, SERUM 110 MMOL/L (96-112); CO2 (CARBON DIOXIDE) 25 MMOL/L (24-34); CREATININE 0.58 MG/DL (0.55-1.02); GFR AFRICAN AMERICAN 122 ML/MIN (>=60); GFR NON AFRICAN AMERICAN 105 ML/MIN (>=60); GLOBULIN 3.5 G/DL (2.5-4.1); GLUCOSE, SERUM 91 MG/DL (60-99); POTASSIUM, SERUM 3.4 MMOL/L (3.5-5.3); SGOT(AST) 11 U/L (5-40); SGPT(ALT) 26 U/L (5-65); SODIUM, SERUM 145 MMOL/L (135-148); TOTAL BILIRUBIN 0.1 MG/DL (0-1.2); TOTAL PROTEIN 6.3 G/DL (6.0-8.5)
[2016-12-26] MEDS ORDERED: BUSPAR10 PO (14:28)
[2016-12-26] MEDS ORDERED: MONUROL PO (14:30)
== END 2016-12-26 15:24 | disposition home health service (06) | DRG 698 ==
LOC: ER 12:11 → CCU 17:16 → 4SO 12-14 15:17 → IMCU 12-16 18:27 → 2SO 12-20 01:09
PROVIDERS: Hospitalist; Internal Medicine; Internal Medicine Critical Care Medicine; Internal Medicine Pulmonary Disease; Nurse Practitioner Family
PROC: 5A09457 Assistance with Respiratory Ventilation, 24-96 Consecutive Hours, Continuous Positive Airway Pressure (ICD-10-PCS; principal; 2016-12-12)
PROC: 02HV33Z Insertion of Infusion Device into Superior Vena Cava, Percutaneous Approach (ICD-10-PCS; 2016-12-13)
PROC: 4A02X4A Measurement of Cardiac Electrical Activity, Guidance, External Approach (ICD-10-PCS; 2016-12-13)
DX: T83.511A Infection and inflammatory reaction due to indwelling urethral catheter, initial encounter (principal); A41.9 Sepsis, unspecified organism; J96.21 Acute and chronic respiratory failure with hypoxia; R65.20 Severe sepsis without septic shock; G92 Toxic encephalopathy; J18.9 Pneumonia, unspecified organism; T86.0 Complications of bone marrow transplant; E87.2 Acidosis; J96.22 Acute and chronic respiratory failure with hypercapnia; G82.20 Paraplegia, unspecified; E87.1 Hypo-osmolality and hyponatremia; N39.0 Urinary tract infection, site not specified; E86.0 Dehydration; G89.4 Chronic pain syndrome; E87.6 Hypokalemia; G47.33 Obstructive sleep apnea (adult) (pediatric); G40.909 Epilepsy, unspecified, not intractable, without status epilepticus; Z66 Do not resuscitate; N99.511 Cystostomy infection; Y71.0 Diagnostic and monitoring cardiovascular devices associated with adverse incidents; Y63.0 Excessive amount of blood or other fluid given during transfusion or infusion; Z82.49 Family history of ischemic heart disease and other diseases of the circulatory system; Z80.1 Family history of malignant neoplasm of trachea, bronchus and lung; Z88.5 Allergy status to narcotic agent; Z88.0 Allergy status to penicillin; Y92.531 Health care provider office as the place of occurrence of the external cause
CPT/HCPCS: 36569; 36600; 70450; 71010; 74000; 76705; 80048; 80053; 80074; 80305; 81001; 82140; 82272; 82306; 82533; 82550; 82553; 82728; 82805; 82962; 83540; 83550; 83605; 83735; 83935; 83970; 84100; 84132; 84145; 84146; 84300; 84439; 84443; 84484; 85025; 85610; 85652; 85730; 87040; 87077; 87086; 87150; 87186; 87641; 87804; 93005; 94640; 94660; 96374; 99285; A9270-GY; C1751; C9113; J1940; J1953; J1956; J2185; J2405; J3370